=== PATIENT | male | born 1980 | race Caucasian/White ===

== ENCOUNTER 2019-04-06 06:47 | Emergency (ER) | payer SELFPAY ==
[~2019-04-06] VITALS: Ht 167.6 cm; Wt 85.3 kg
[2019-04-06 06:58] VITALS: BP 149/89
--- NOTE | 2019-04-06 07:00 | NUR ---
PT AMBULATED TO ER BED 01
[2019-04-06] MEDS ORDERED: NACL 0.9% 1,000 ML IV SCH (07:13)
[2019-04-06] MEDS ORDERED: ONDANSETRON 4 MG/2 ML VIAL IVP ONE (07:15)
[2019-04-06] MEDS ORDERED: MORPHINE SULFATE 4 MG/ML SYR IVP ONE (07:15)
--- NOTE | 2019-04-06 07:29 | NUR ---
PT TRANSFERRED TO ER BED 11 AT THIS TIME
[2019-04-06 07:54] LABS: BASOPHILS % (AUTO) 0.4 % (0.0-2.0); EOSINOPHILS # (AUTO) 0.1 K/uL (0-0.4); EOSINOPHILS % (AUTO) 1.3 % (0.0-4.0); HEMATOCRIT 44.8 % (36-52); HEMOGLOBIN 15.4 g/dL (12.0-18.0); LYMPHOCYTES # (AUTO) 1.8 K/uL (2.0-11.5); LYMPHOCYTES % (AUTO) 28.5 % (20.5-51.1); MEAN CORPUSCULAR HEMOGLOBIN 30 pg (27-31); MEAN CORPUSCULAR HGB CONC 34 g/dL (33-37); MEAN CORPUSCULAR VOLUME 87.3 fL (80-94); MONOCYTES # (AUTO) 0.3 K/uL (0.8-1.0); MONOCYTES % (AUTO) 5.5 % (1.7-9.3); NEUTROPHILS % (AUTO) 64.3 % (42.2-75.2); PLATELET COUNT (AUTO) 298 K/uL (140-450); RED BLOOD CELL COUNT(AUTO) 5.13 MIL/uL (4.20-6.10); RED CELL DISTRIBUTION WIDTH 12.6 % (11.6-13.7); WHITE BLOOD COUNT (AUTO) 6.3 K/uL (4.8-10.8)
[2019-04-06 08:15] LABS: ANION GAP 14.4 (8-16); CARBON DIOXIDE 24.1 mmol/L (21-32); CREATININE 0.9 mg/dL (0.7-1.3); POTASSIUM 3.5 mmol/L (3.5-5.1); TOTAL BILIRUBIN 0.5 mg/dL (0.0-1.0)
--- NOTE | 2019-04-06 08:43 | NUR ---
PT TAKEN TO CT VIA WHEELCHAIR AT THIS TIME
--- NOTE | 2019-04-06 08:55 | NUR ---
PT BACK FROM CT
[2019-04-06] MEDS ORDERED: KETOROLAC 30 MG/ML VIAL IVP ONE (09:30)
[2019-04-06 09:38] LABS: BILIRUBIN,URINE NEGATIVE (NEGATIVE); BLOOD, URINE 3+ (NEGATIVE); COLOR,URINE YELLOW (YELLOW); LEUKOCYTE ESTERASE ,URINE NEGATIVE (NEGATIVE); NITRITE, URINE NEGATIVE (NEGATIVE); PH,URINE 6.5 (5.0-9.0); UGLUCOSE NEGATIVE (NEGATIVE)
[2019-04-06 09:46] LABS: APPEARANCE,URINE SLIGHTLY HAZY (CLEAR)
[2019-04-06 09:47] LABS: WBC,URINE 0-5 /HPF (0-5)
--- NOTE | 2019-04-06 10:00 | NUR ---
Patient appears to be resting in bed. Vital Signs within normal limits. Respirations even and unlabored. Pt sts " i feel much better now. i do not have any pain any more." ER MD DR Garcia at bedside.
[2019-04-06 10:42] VITALS: BP 138/88
--- NOTE | 2019-04-06 10:43 | NUR ---
Patient discharged with v/s stable. Written and verbal after care instructions given and explained. Patient alert, oriented and verbalized understanding of instructions. Ambulatory with steady gait. All questions addressed prior to discharge. ID band removed. Patient advised to follow up with PMD. Rx of [place], Motrin and Flomax given. Patient educated on indication of medication including possible reaction and side effects. Opportunity to ask questions provided and answered.
== END 2019-04-06 10:43 | disposition home or self-care (01) ==
LOC: MED 06:47
DX: N23 Unspecified renal colic (principal)
CPT/HCPCS: 36415; 74177; 80053; 81001; 83690; 85025; 96374; 96375; 99284; J1885; J2270; J2405; J7030; Q9967; 81002; 96361

== ENCOUNTER 2022-05-02 06:50 | Day surgery (SDC) | payer OTHER ==
[~2022-05-02] VITALS: Ht 165.1 cm; Wt 83.9 kg
[2022-05-02] MEDS ORDERED: fentaNYL citrate 0.05 MG/ML VIAL ONE (08:20)
[2022-05-02] MEDS ORDERED: LIDOCAINE 2% 100 MG/5 ML UJET TP ONE (08:21)
[2022-05-02] MEDS ORDERED: fentaNYL citrate 0.05 MG/ML VIAL IVP ONE (08:50)
== END 2022-05-02 09:20 | disposition home or self-care (01) ==
LOC: MMU 06:50 → MOR 06:50
PROVIDERS: ATTEND Internal Medicine Gastroenterology
DX: K62.5 Hemorrhage of anus and rectum (principal); K63.5 Polyp of colon; K64.9 Unspecified hemorrhoids; E78.00 Pure hypercholesterolemia, unspecified; Z20.822 Contact with and (suspected) exposure to COVID-19; Z79.899 Other long term (current) drug therapy
CPT/HCPCS: 45385; 87426; J3010